=== PATIENT | male | born 1990 | race Caucasian/White ===

== ENCOUNTER 2018-10-07 10:07 | Emergency (ER) | payer MEDICAID ==
[~2018-10-07] VITALS: Ht 190.5 cm; Wt 150.0 kg
[2018-10-07] MEDS ORDERED: ketorolac trometh inj. 60 MG/2 ML VIAL IM ONE (10:55)
[2018-10-07 10:57] LABS: CLARITY,URINE CLEAR (Clear); COLOR,URINE YELLOW (Yellow); GLUCOSE, URINE NEGATIVE (Neg); KETONES,URINE NEGATIVE (Neg); LEUKOCYTE ESTERASE ,URINE NEGATIVE (Neg); NITRITES, URINE NEGATIVE (Neg); OCCULT BLOOD,URINE NEGATIVE (Neg); PH,URINE 6.5 (4.8-8.0); PROTEIN,URINE NEGATIVE (Neg); UROBILINOGEN,URINE 0.2 E.U/dL (0.2-1.0)
[2018-10-07 11:02] LABS: UA COLLECTION TYPE URINAL
[2018-10-07] MEDS ORDERED: CYCL-1 PO (11:57)
[2018-10-07 12:14] VITALS: BP 133/102
== END 2018-10-07 12:16 | disposition home or self-care (01) ==
LOC: ER 10:08
DX: S29.012A Strain of muscle and tendon of back wall of thorax, initial encounter (principal); E66.01 Morbid (severe) obesity due to excess calories; A69.20 Lyme disease, unspecified; F12.90 Cannabis use, unspecified, uncomplicated; Z79.899 Other long term (current) drug therapy; X58.XXXA Exposure to other specified factors, initial encounter; Y93.89 Activity, other specified; Y92.89 Other specified places as the place of occurrence of the external cause; Y99.8 Other external cause status
CPT/HCPCS: 81003; 96372; 99283; J1885